=== PATIENT | male | born 1980 | race African-American/Black ===

== ENCOUNTER 2019-05-22 08:00 | Emergency (ER) | payer BC ==
[2019-05-22 08:14] VITALS: BP 153/96
--- NOTE | 2019-05-22 08:41 | ER Document Report ---
ED General - General Chief Complaint: Penile Discharge Stated Complaint: URINARY PROBLEM Notes: Patient is a 38-year-old -[place] male with no significant past medical history presents the emergency department the chief complaint of dysuria for the past 4 to 5 days. States it is associated with some clear drainage from the penis. He had unprotected intercourse just prior to this and is concerned for possible STDs. Denies history of STD. Denies any testicular pain or swelling. Denies any tender regional lymphadenopathy or abdominal pain. No fever. - Related Data Allergies/Adverse Reactions: No Known Allergies Allergy (Verified 05/22/19 08:08) Past Medical History - Social History Smoking Status: Never Smoker Chew tobacco use (# tins/day): No Frequency of alcohol use: Social Drug Abuse: Marijuana Family History: None Patient has suicidal ideation: No Patient has homicidal ideation: No Past Surgical History: Reports: Hx Orthopedic Surgery - hand and back, arm Review of Systems - Review of Systems Genitourinary: Dysuria, Discharge -: Yes All other systems reviewed and negative Physical Exam - Vital signs Vitals: Temp Pulse Resp BP Pulse Ox 97.6 F 74 14 153/96 H 100 05/22/19 08:06 05/22/19 08:06 05/22/19 08:06 05/22/19 08:06 05/22/19 08:06 - General General appearance: Appears well, Alert In distress: None - Respiratory Respiratory status: No respiratory distress Chest status: Nontender Breath sounds: Normal Chest palpation: Normal - Cardiovascular Rhythm: Regular Heart sounds: Normal auscultation - Abdominal Inspection: Normal Distension: No distension Bowel sounds: Normal Tenderness: Nontender Organomegaly: No organomegaly - Genitourinary Inspection: Normal Tenderness: Nontender Cremasteric reflex: Normal Scrotum: Normal - Neurological Neuro grossly intact: Yes Cognition: Normal Orientation: AAOx4 [place] Coma Scale Eye Opening: Spontaneous Sandra Coma Scale Verbal: Oriented Sandra Coma Scale Motor: Obeys Commands Sandra Coma Scale Total: 15 Speech: Normal - Psychological Associated symptoms: Normal affect, Normal mood - Skin Skin Temperature: Warm Skin Moisture: Dry Skin Color: Normal Course - Re-evaluation Re-evalutation: 05/22/19 09:27 Patient prophylaxed for gonorrhea and chlamydia. Pending lab results. Encouraged the patient to follow-up outpatient with the health department or his primary care provider for ongoing surveillance and testing. Advised to return here or any ER immediately with any new, persistent or worsening symptoms. He verbalized understood and agreed. He will remain abstinent at this time. - Vital Signs Vital signs: Temp Pulse Resp BP Pulse Ox 97.6 F 74 14 153/96 H 100 05/22/19 08:06 05/22/19 08:06 05/22/19 08:06 05/22/19 08:06 05/22/19 08:06 Discharge - Discharge Clinical Impression: Dysuria, Penile discharge Condition: Stable Disposition: HOME, SELF-CARE Instructions: Gonorrhea ([facility]), Chlamydia ([facility]) Referrals: [facility] [NO LOCAL MD] - Follow up as needed
[2019-05-22] MEDS ORDERED: CEFTRIAXONE INJ 250 MG VIAL IM ONE (08:43)
[2019-05-22] MEDS ORDERED: AZITHROMYCIN 250 MG TABLET PO ONE (08:43)
[2019-05-22 09:04] LABS: APPEARANCE,URINE CLEAR; BILIRUBIN,URINE NEGATIVE (NEGATIVE); COLOR,URINE YELLOW; GLUCOSE, URINE NEGATIVE (NEGATIVE); KETONES,URINE NEGATIVE (NEGATIVE); PROTEIN,URINE NEGATIVE (NEGATIVE); URINE SPECIFIC GRAVITY 1.019; UROBILINOGEN,URINE NEGATIVE mg/dL (<2.0)
[2019-05-22 10:50] LABS: CHLAM PCR NOT DETECTED (NOT DETECT)
== END 2019-05-22 09:30 | disposition home or self-care (01) ==
LOC: ER 08:00
DX: R36.9 Urethral discharge, unspecified (principal); R30.0 Dysuria; Z20.2 Contact with and (suspected) exposure to infections with a predominantly sexual mode of transmission
CPT/HCPCS: 99283; 96372; 81001; 87491; 87591; J0696

== ENCOUNTER 2019-05-26 08:30 | Emergency (ER) | payer BC ==
--- NOTE | 2019-05-26 08:45 | ER Document Report ---
HPI - HPI Patient complains to provider of: Jaclyn Time Seen by Provider: 05/26/19 08:37 Onset: Other - 4 days Onset/Duration: Worse Context: Patient presents complaining of itching to bilateral eyes with the right worse than the left. Patient states that he has had drainage from the right eye that has now started in the left. Patient reports matting of the eyelids in the morning. Patient denies any trauma. Patient denies any use of contact lenses or glasses. Patient denies any eye pain. Patient denies any change in vision. Associated Symptoms: Other - Eye redness and drainage. denies: Fever Exacerbated by: Denies Relieved by: Denies Similar symptoms previously: No Recently seen / treated by doctor: No - ROS ROS below otherwise negative: Yes Systems Reviewed and Negative: Yes All other systems reviewed and negative - CONSTITUTIONAL Constitutional: DENIES: Fever, Chills - EENT EENT: REPORTS: Eye problems - RESPIRATORY Respiratory: DENIES: Coughing - DERM Skin Color: Normal Skin Problems: None Past Medical History - General Information source: Patient - Social History Smoking Status: Never Smoker Frequency of alcohol use: None Drug Abuse: None Family History: None - Medical History Medical History: Negative Past Surgical History: Reports: Hx Orthopedic Surgery - hand and back, arm Vertical Provider Document - CONSTITUTIONAL Agree With Documented VS: Yes Exam Limitations: No Limitations General Appearance: WD/WN, No Apparent Distress - HEENT HEENT: Atraumatic, Normocephalic, PERRLA Notes: Sclera injected to the right eye, purulent drainage matting lashes of eyelids right worse than left, extraocular movements intact, no chemosis - NECK Neck: Normal Inspection - RESPIRATORY Respiratory: Breath Sounds Normal, No Respiratory Distress - CARDIOVASCULAR Cardiovascular: Regular Rate, Regular Rhythm - BACK Back: Normal Inspection - MUSCULOSKELETAL/EXTREMETIES Musculoskeletal/Extremeties: MAEW - NEURO Level of Consciousness: Awake, Alert, Appropriate Motor/Sensory: No Motor Deficit Course - Re-evaluation Re-evalutation: 05/26/19 08:59 Patient with injection of sclera with purulent drainage and pruritic eyes. No reported change in vision, no eye pain. Patient encouraged to follow-up with [facility] for any worsening of symptoms or lack of improvement. Discharge - Discharge Clinical Impression: Conjunctivitis Qualifiers: Conjunctivitis type: unspecified Laterality: bilateral Qualified Code(s): H10.9 - Unspecified conjunctivitis Condition: Stable Disposition: HOME, SELF-CARE Instructions: Conjunctivitis ([facility]), Eyedrop Use ([facility]) Additional Instructions: Return immediately for any new or worsening symptoms Followup with your primary care provider, call tomorrow to make a followup appointment Follow-up with [facility] for any persistent problems Prescriptions: Polymyxin B Sulfate/Tmp [Polytrim Oph Soln 10 ml] 1 drop BTH_EYE ASDIR #1 bottle Forms: Return to Work Referrals: [facility] [Provider Group] - [facility] - Follow up as needed
[2019-05-26 08:48] VITALS: BP 146/91
== END 2019-05-26 08:58 | disposition home or self-care (01) ==
LOC: ER 08:30
DX: H10.9 Unspecified conjunctivitis (principal)
CPT/HCPCS: 99282